=== PATIENT | female | born 1970 | race African-American/Black ===

== ENCOUNTER 2018-11-09 19:19 | Emergency (ER) | payer BC ==
[~2018-11-09] VITALS: Ht 157.5 cm; Wt 109.8 kg
[2018-11-09 20:10] VITALS: BP 133/84
== END 2018-11-09 21:18 | disposition home or self-care (01) ==
LOC: ER 19:19
DX: H66.91 Otitis media, unspecified, right ear (principal); F17.200 Nicotine dependence, unspecified, uncomplicated; Z90.710 Acquired absence of both cervix and uterus; Z90.89 Acquired absence of other organs; Z88.1 Allergy status to other antibiotic agents